=== PATIENT | female | born 1975 | race Caucasian/White ===

== ENCOUNTER 2018-05-28 05:23 | Inpatient (IN) | payer BC ==
[2018-05-22 14:28] LABS: BASOPHILS # (AUTO) 0.1 X10'3 (0-0.2); BASOPHILS % (AUTO) 0.8 % (0-1); EOSINOPHILS # (AUTO) 0.2 X10'3 (0-0.9); EOSINOPHILS % (AUTO) 2.1 % (0-6); LYMPHOCYTES # (AUTO) 1.8 X10'3 (1.1-4.8); LYMPHOCYTES % (AUTO) 16.1 % (21-51); MEAN CORPUSCULAR HEMOGLOBIN 31.8 PG (27.0-31.0); MEAN CORPUSCULAR HGB CONC 33.8 % (33.0-36.5); MEAN CORPUSCULAR VOLUME 94.1 FL (78-98); MEAN PLATELET VOLUME 8.6 FL (7.4-10.4); MONOCYTES # (AUTO) 0.8 X10'3 (0-0.9); MONOCYTES % (AUTO) 7.3 % (2-12); NEUTROPHILS # (AUTO) 8.4 X10'3 (1.8-7.7); NEUTROPHILS % (AUTO) 73.7 % (42-75); PRE OP HEMATOCRIT 37.1 % (35.0-45.0); PRE OP HEMOGLOBIN 12.5 g/dL (12.0-16.0); PRE OP PLATELET COUNT 378 X10'3 (140-440); RED BLOOD COUNT 3.94 X10'6 (4.20-5.60); RED CELL DISTRIBUTION WIDTH 12.6 % (11.5-14.5)
[2018-05-22 14:44] LABS: ALBUMIN 3.9 G/DL (3.4-5.0); ALKALINE PHOSPHATASE 63 IU/L (46-116); BLOOD UREA NITROGEN 15 MG/DL (7-18); BUN/CREATININE RATIO 17.4 (6.6-38.0); CALCIUM 9.3 MG/DL (8.5-10.1); CHLORIDE 101 MMOL/L (99-107); CREATININE 0.86 MG/DL (0.40-0.90); PRE OP ALT 7 U/L (30-65); PRE OP ANION GAP 8 (8-16); PRE OP AST 16 U/L (10-37); PRE OP BILIRUB, TOTAL 0.4 MG/DL (0.0-1.0); PRE OP GLUCOSE 104 MG/DL (70-104); PRE OP SODIUM 138 MMOL/L (135-145); TOTAL CARBON DIOXIDE 28.6 MMOL/L (24-32); TOTAL PROTEIN 7.7 G/DL (6.4-8.2); eGFR 72 ML/MIN
[2018-05-28] VITALS (19 sets, daily range): BP systolic 99–143; BP diastolic 42–99
[~2018-05-28] VITALS: Ht 165.1 cm; Wt 80.5 kg
[~2018-05-28 05:23] MED LIST: CARB1TAB23 PO; LEVO75TA PO; LOSA50TA3 PO; PROP60CA6 PO; RANI150T44 PO; ringers solution, lacted 1,000 ML IV SCH
[2018-05-28] MEDS ORDERED: famotidine 20mg tablet PO ONE (05:30)
[2018-05-28] MEDS ORDERED: metoclopramide 5 mg/ml inj IV ONE (05:30)
[2018-05-28] MEDS ORDERED: acetaminophen 325mg tablet PO ONE (05:30)
[2018-05-28] MEDS ORDERED: tranexamic acid inj. 1,000 MG in normal saline 100ml IV soln 90 ML IV ONE (05:30)
[2018-05-28] MEDS ORDERED: gabapentin 300mg capsule PO ONE (05:30)
[2018-05-28] MEDS ORDERED: DOCUMENT DATE & TIME OF BETA-BLOCKER PO ONE (05:30)
[2018-05-28] MEDS ORDERED: vancomycin inj 1,500 MG in normal saline 300ml IV soln IV ONE (05:30)
[2018-05-28] MEDS ORDERED: oxyCODONE SR 10mg (sust. release) tab -2 tabs (20mg) PO ONE (05:30)
[2018-05-28] MEDS ORDERED: cefazolin/dext.iso 2gm/100 ML IV ONE (05:30)
[2018-05-28] MEDS ORDERED: LIDOcaine 1% (10mg/ml) 2ml vial ONE (05:44)
[2018-05-28] MEDS ORDERED: ceFAZolin 1000mg inj ONE ×2 (06:44→09:00)
[2018-05-28] MEDS ORDERED: tetracaine 1% (10mg/ml) pres. free inj. ONE (07:11)
[2018-05-28] MEDS ORDERED: MIDAZolam 1mg/ml 10ml vial ONE (07:12)
[2018-05-28] MEDS ORDERED: fentaNYL/PF 50MCG/1 ML 2ML syringe ONE (07:13)
[2018-05-28] MEDS ORDERED: propofol inj 20 ML IV ONE ×2 (07:33)
[2018-05-28] MEDS ORDERED: calcium chloride 100 MG/1 ML inj IV ONE (08:18)
[2018-05-28] MEDS ORDERED: Thrombin (Bovine) 5,000 unit vial TP ONE (08:18)
[2018-05-28] MEDS ORDERED: ringers solution, lacted 1,000 ML IV SCH (08:34)
[2018-05-28] MEDS ORDERED: ondansetron/PF 4mg/2ml inj IV PRN ×2 (08:35→10:35)
[2018-05-28] MEDS ORDERED: meperidine/PF 25mg/ml syringe IV PRN ×3 (08:35)
[2018-05-28] MEDS ORDERED: proCHLORperazine 10 MG/2 ml inj IV PRN (08:35)
[2018-05-28] MEDS ORDERED: morphine 4 MG/ML inj SYRINge IV PRN ×2 (08:35)
[2018-05-28] MEDS ORDERED: vancomycin 1,000mg inj ONE (10:04)
[2018-05-28] MEDS ORDERED: HYDROmorphone 1 mg/ml syringe IV PRN ×2 (10:35)
[2018-05-28] MEDS ORDERED: magnesium hydroxide 30ml (MOM) UD suspension PO PRN (10:35)
[2018-05-28] MEDS ORDERED: oxyCODONE IR 5mg (immed. release) tablet PO PRN (10:35)
[2018-05-28] MEDS ORDERED: acetaminophen 325mg tablet PO PRN (10:35)
[2018-05-28] MEDS ORDERED: diphenhydrAMINE 25mg capsule PO PRN ×2 (10:35)
[2018-05-28] MEDS ORDERED: bisacodyl 10mg suppository rectal RC PRN (10:35)
[2018-05-28] MEDS: potassium cl 20mEq in 1/2 NS 1,000 ML IV SCH ×2 (12:33→18:32)
[2018-05-28] MEDS: gabapentin 300mg capsule PO SCH ×2 (12:35→21:26)
[2018-05-28] MEDS ORDERED: tranexamic acid inj. 800 MG in normal saline 100ml IV soln 100 ML IV ONE (13:30)
[2018-05-28] MEDS: acetaminophen 325mg tablet PO SCH ×2 (14:50→19:32)
[2018-05-28] MEDS: ceFAZolin 1GM/D5W- ADD-VANTAGE 50 ML IV SCH ×2 (17:02→23:38)
[2018-05-28] MEDS: oxyCODONE IR 5mg (immed. release) tablet PO PRN ×2 (17:02→21:27)
[2018-05-28] MEDS ORDERED: vancomycin/NS 1 GM ADD-VANTAGE 250 ML IV SCH (20:00)
[2018-05-28] MEDS: sennosides 8.6mg tablet PO SCH (21:26)
[2018-05-29] MEDS: acetaminophen 325mg tablet PO SCH ×4 (01:43→20:49)
[2018-05-29] MEDS: oxyCODONE IR 5mg (immed. release) tablet PO PRN ×6 (01:44→22:10)
[2018-05-29 02:00] VITALS: BP 113/70
[2018-05-29] MEDS: potassium cl 20mEq in 1/2 NS 1,000 ML IV SCH ×3 (03:11→18:32)
[2018-05-29 06:00] VITALS: BP 139/86
[2018-05-29] MEDS ORDERED: PROP40TA7 PO (07:16)
[2018-05-29] MEDS: famotidine 20mg tablet PO SCH ×2 (08:00→20:00)
[2018-05-29] MEDS: losartan 50mg tablet PO SCH (08:01)
[2018-05-29] MEDS: propranolol 40mg tablet PO SCH ×2 (08:02→20:00)
[2018-05-29] MEDS: gabapentin 300mg capsule PO SCH ×3 (08:02→20:49)
[2018-05-29] MEDS: carbidoba-levodopa 25-100mg tablet PO SCH ×2 (08:02→16:11)
[2018-05-29] MEDS: levoTHYROXINE 100mcg tablet PO SCH (08:03)
[2018-05-29] MEDS: aspirin 325mg tablet PO SCH (08:03)
[2018-05-29 09:40] LABS: BASOPHILS % (AUTO) 0.1 % (0-1); EOSINOPHILS # (AUTO) 0.1 X10'3 (0-0.9); EOSINOPHILS % (AUTO) 1.2 % (0-6); HEMATOCRIT 27.6 % (35.0-45.0); HEMOGLOBIN 9.2 g/dl (12.0-16.0); LYMPHOCYTES # (AUTO) 0.9 X10'3 (1.1-4.8); LYMPHOCYTES % (AUTO) 7.3 % (21-51); MEAN CORPUSCULAR HEMOGLOBIN 31.7 PG (27.0-31.0); MEAN CORPUSCULAR HGB CONC 33.2 % (33.0-36.5); MEAN CORPUSCULAR VOLUME 95.4 FL (78-98); MEAN PLATELET VOLUME 8.5 FL (7.4-10.4); MONOCYTES % (AUTO) 8.9 % (2-12); NEUTROPHILS # (AUTO) 9.7 X10'3 (1.8-7.7); NEUTROPHILS % (AUTO) 82.5 % (42-75); PLATELET COUNT 305 X10'3 (140-440); RED BLOOD COUNT 2.89 X10'6 (4.20-5.60); RED CELL DISTRIBUTION WIDTH 12.7 % (11.5-14.5); WHITE BLOOD COUNT 11.8 X10'3 (4.5-11.0)
[2018-05-29 10:00] VITALS: BP 139/86
[2018-05-29 17:00] VITALS: BP 94/51
[2018-05-29 20:45] VITALS: BP 96/50
[2018-05-29] MEDS: sennosides 8.6mg tablet PO SCH (20:50)
[2018-05-29 21:00] VITALS: BP 108/60
[2018-05-30] MEDS: oxyCODONE IR 5mg (immed. release) tablet PO PRN ×4 (02:16→13:36)
[2018-05-30] MEDS: acetaminophen 325mg tablet PO SCH ×2 (02:16→09:26)
[2018-05-30 05:56] LABS: BASOPHILS % (AUTO) 0.2 % (0-1); EOSINOPHILS # (AUTO) 0.3 X10'3 (0-0.9); EOSINOPHILS % (AUTO) 2.4 % (0-6); HEMATOCRIT 23.2 % (35.0-45.0); HEMOGLOBIN 7.8 g/dl (12.0-16.0); LYMPHOCYTES % (AUTO) 9.3 % (21-51); MEAN CORPUSCULAR HEMOGLOBIN 31.9 PG (27.0-31.0); MEAN CORPUSCULAR HGB CONC 33.5 % (33.0-36.5); MEAN CORPUSCULAR VOLUME 95.3 FL (78-98); MEAN PLATELET VOLUME 8.5 FL (7.4-10.4); MONOCYTES # (AUTO) 1.1 X10'3 (0-0.9); MONOCYTES % (AUTO) 9.6 % (2-12); NEUTROPHILS # (AUTO) 8.8 X10'3 (1.8-7.7); NEUTROPHILS % (AUTO) 78.5 % (42-75); PLATELET COUNT 237 X10'3 (140-440); RED BLOOD COUNT 2.44 X10'6 (4.20-5.60); RED CELL DISTRIBUTION WIDTH 12.7 % (11.5-14.5); WHITE BLOOD COUNT 11.1 X10'3 (4.5-11.0)
[2018-05-30 06:00] VITALS: BP 90/56
[2018-05-30] MEDS: losartan 50mg tablet PO SCH (08:00)
[2018-05-30] MEDS: propranolol 40mg tablet PO SCH (08:00)
[2018-05-30] MEDS: carbidoba-levodopa 25-100mg tablet PO SCH ×2 (09:25)
[2018-05-30] MEDS: famotidine 20mg tablet PO SCH (09:25)
[2018-05-30] MEDS: gabapentin 300mg capsule PO SCH ×2 (09:25→13:36)
[2018-05-30] MEDS: aspirin 325mg tablet PO SCH (09:26)
[2018-05-30] MEDS: levoTHYROXINE 100mcg tablet PO SCH (09:26)
[2018-05-30 10:00] VITALS: BP 105/60
[2018-05-30] MEDS ORDERED: acetaminophen 325mg tablet PO PRN (10:35)
== END 2018-05-30 14:09 | disposition home or self-care (01) | DRG 470 ==
LOC: PAS IN 05:23 → EDSTATUS 07:30 → ORTHO 4S 12:00
PROVIDERS: ADMIT Orthopaedic Surgery; ATTEND Nurse Practitioner Family
PROC: 0SRB06A Replacement of Left Hip Joint with Oxidized Zirconium on Polyethylene Synthetic Substitute, Uncemented, Open Approach (ICD-10-PCS; principal; 2018-05-28 07:09)
DX: M16.12 Unilateral primary osteoarthritis, left hip (principal); G24.8 Other dystonia; E03.9 Hypothyroidism, unspecified; I10 Essential (primary) hypertension; K21.9 Gastro-esophageal reflux disease without esophagitis; D50.0 Iron deficiency anemia secondary to blood loss (chronic); Z79.899 Other long term (current) drug therapy
CPT/HCPCS: 36415; 73502; 76001; 80053; 84443; 85025; 86885; 86900; 86901; 87070; 93005; 97110; 97116; 97162; 97530; A6449; A6455; A7000; C1758; C1776; G0378; J0690; J1170; J2250; J2704; J2765; J3010; J3370; J3490; J7030; J7120